=== PATIENT | female | born 1965 | race Native Hawaiian/Other Pacific Islander ===

== ENCOUNTER 2016-03-06 08:02 | Outpatient (CLI) | payer OTHER | END 2016-03-06 19:06 | disposition home or self-care (01) | LOC: LABW 08:02 | DX: M25.50 Pain in unspecified joint (principal) | CPT/HCPCS: 36415; 85651; 86039; 86430 ==

== ENCOUNTER 2016-04-17 08:43 | Outpatient (CLI) | payer OTHER | END 2016-04-17 22:49 | disposition home or self-care (01) | LOC: MAMMO 08:43 | DX: Z12.31 Encounter for screening mammogram for malignant neoplasm of breast (principal); Z78.0 Asymptomatic menopausal state; Z82.62 Family history of osteoporosis; M25.559 Pain in unspecified hip | CPT/HCPCS: G0202-TC ==

== ENCOUNTER 2016-04-26 13:12 | Outpatient (CLI) | payer OTHER | END 2016-04-26 19:17 | disposition home or self-care (01) | LOC: LABW 13:12 | DX: E11.40 Type 2 diabetes mellitus with diabetic neuropathy, unspecified (principal) | CPT/HCPCS: 36415; 82607; 85651; 86039 ==

== ENCOUNTER 2016-05-09 15:55 | Outpatient (CLI) | payer OTHER | END 2016-05-09 21:10 | disposition home or self-care (01) | LOC: RESP 15:55 | DX: E11.40 Type 2 diabetes mellitus with diabetic neuropathy, unspecified (principal) | CPT/HCPCS: 95910 ==

== ENCOUNTER 2016-05-27 11:10 | Outpatient (CLI) | payer OTHER | END 2016-05-27 19:14 | disposition home or self-care (01) | LOC: RAD 11:10 | DX: E11.9 Type 2 diabetes mellitus without complications (principal); K59.00 Constipation, unspecified ==

== ENCOUNTER 2016-06-20 12:40 | Outpatient (CLI) | payer OTHER | END 2016-06-20 13:40 | disposition home or self-care (01) | LOC: RAD 12:40 | DX: M25.511 Pain in right shoulder (principal); M25.531 Pain in right wrist ==

== ENCOUNTER 2016-07-08 08:46 | Outpatient (CLI) | payer OTHER | END 2016-07-08 11:00 | disposition home or self-care (01) | LOC: MRI 08:46 | DX: M25.511 Pain in right shoulder (principal) ==

== ENCOUNTER 2016-07-25 08:34 | Outpatient (CLI) | payer OTHER ==
[2016-07-25 09:16] LABS: POTASSIUM 4.2 mmol/L (3.6-5.2); SODIUM 141 mmol/L (136-145)
== END 2016-07-25 09:45 | disposition home or self-care (01) ==
LOC: LABW 08:34
PROVIDERS: Physician Assistant
DX: I10 Essential (primary) hypertension (principal); E04.2 Nontoxic multinodular goiter; E11.9 Type 2 diabetes mellitus without complications; G62.89 Other specified polyneuropathies
CPT/HCPCS: 36415; 80053; 80061; 82607; 83036; 83735; 84439; 84443; 85651

== ENCOUNTER 2016-08-01 10:12 | Outpatient (CLI) | payer OTHER | END 2016-08-01 19:40 | disposition home or self-care (01) | LOC: MRI 10:12 | DX: M25.531 Pain in right wrist (principal) ==

== ENCOUNTER 2017-02-24 09:42 | Outpatient (CLI) | payer OTHER | END 2017-02-24 20:20 | disposition home or self-care (01) | LOC: RAD 09:42 | DX: J01.01 Acute recurrent maxillary sinusitis (principal); J18.9 Pneumonia, unspecified organism ==

== ENCOUNTER 2017-02-26 08:35 | Outpatient (CLI) | payer OTHER ==
[2017-02-26 09:55] LABS: PLATELET COUNT 213 K/uL (152-353)
[2017-02-26 10:06] LABS: POTASSIUM 4.7 mmol/L (3.6-5.2); SODIUM 137 mmol/L (136-145)
== END 2017-02-26 19:36 | disposition home or self-care (01) ==
LOC: LABW 08:35
PROVIDERS: Physician Assistant
DX: J01.01 Acute recurrent maxillary sinusitis (principal); J18.9 Pneumonia, unspecified organism; E10.9 Type 1 diabetes mellitus without complications; Z79.899 Other long term (current) drug therapy; Z51.81 Encounter for therapeutic drug level monitoring
CPT/HCPCS: 36415; 80053; 80061; 83036; 84439; 84443; 85027

== ENCOUNTER 2017-03-04 10:14 | Outpatient (CLI) | payer OTHER | END 2017-03-04 11:30 | disposition home or self-care (01) | LOC: RESP 10:14 | DX: R07.89 Other chest pain (principal); R06.02 Shortness of breath; R53.83 Other fatigue; I25.10 Atherosclerotic heart disease of native coronary artery without angina pectoris | CPT/HCPCS: 93306 ==

== ENCOUNTER 2017-04-02 18:05 | Emergency (ER) | payer OTHER ==
[~2017-04-02] VITALS: Ht 157.5 cm; Wt 69.4 kg
[2017-04-02] MEDS ORDERED: CLOP75TA2 PO (18:27)
[2017-04-02] MEDS ORDERED: ALPR0.5T24 PO (18:28)
[2017-04-02] MEDS ORDERED: ZANTAC300 MG PO (18:28)
[2017-04-02] MEDS ORDERED: LISI5TAB10 PO (18:29)
[2017-04-02] MEDS ORDERED: METO25TA4 OR (18:29)
[2017-04-02] MEDS ORDERED: LYRICA200 MG OR (18:29)
[2017-04-02] MEDS ORDERED: TRESIBA FL100 UNIT/M SC (18:31)
[2017-04-02 19:12] LABS: PLATELET COUNT 159 K/uL (152-353)
[2017-04-02 19:18] LABS: POTASSIUM 4.1 mmol/L (3.6-5.2); SODIUM 135 mmol/L (136-145)
[2017-04-02 20:10] VITALS: BP 121/66; TEMP 98.5
== END 2017-04-02 20:10 | disposition home or self-care (01) ==
LOC: ED 18:05
DX: R55 Syncope and collapse (principal); E11.9 Type 2 diabetes mellitus without complications
CPT/HCPCS: 36415; 80053; 81000; 82550; 82553; 84484; 85027; 87081; 87804; 87880; 93005; 99283

== ENCOUNTER 2017-05-09 13:30 | Outpatient (CLI) | payer OTHER ==
[~2017-05-09 13:30] MED LIST: ALPR0.5T24 PO; CLOP75TA2 PO; LISI5TAB10 PO; LYRICA200 MG OR; METO25TA4 OR; TRESIBA FL100 UNIT/M SC; ZANTAC300 MG PO
== END 2017-05-09 23:01 | disposition home or self-care (01) ==
LOC: RAD 13:30
DX: M54.5 Low back pain (principal); M54.2 Cervicalgia

== ENCOUNTER 2017-07-01 09:20 | Outpatient (CLI) | payer OTHER | END 2017-07-01 19:57 | disposition home or self-care (01) | LOC: MRI 09:20 | DX: E04.2 Nontoxic multinodular goiter (principal); G89.29 Other chronic pain; M25.512 Pain in left shoulder ==

== ENCOUNTER 2017-07-25 09:32 | Outpatient (CLI) | payer OTHER | END 2017-07-25 19:42 | disposition home or self-care (01) | LOC: MAMMO 09:32 | DX: Z12.31 Encounter for screening mammogram for malignant neoplasm of breast (principal) ==

== ENCOUNTER 2017-08-19 08:05 | Outpatient (CLI) | payer OTHER | END 2017-08-19 23:10 | disposition home or self-care (01) | LOC: LABW 08:05 | DX: E10.9 Type 1 diabetes mellitus without complications (principal) | CPT/HCPCS: 36415; 83036 ==

== ENCOUNTER 2017-09-25 10:19 | Outpatient (CLI) | payer OTHER | END 2017-09-25 23:15 | disposition home or self-care (01) | LOC: LABW 10:19 | DX: Z79.891 Long term (current) use of opiate analgesic (principal) | CPT/HCPCS: 80307 ==

== ENCOUNTER 2017-12-19 07:28 | Outpatient (CLI) | payer OTHER ==
[2017-12-19 08:14] LABS: PLATELET COUNT 191 K/uL (152-353)
[2017-12-19 08:35] LABS: POTASSIUM 4.1 mmol/L (3.6-5.2)
== END 2017-12-19 21:09 | disposition home or self-care (01) ==
LOC: LABW 07:28
PROVIDERS: Physician Assistant
DX: I10 Essential (primary) hypertension (principal); E10.9 Type 1 diabetes mellitus without complications
CPT/HCPCS: 36415; 80053; 83036; 84439; 84443; 85027

== ENCOUNTER 2018-05-04 10:45 | Outpatient (CLI) | payer OTHER ==
[2018-05-04 12:00] LABS: PLATELET COUNT 204 K/uL (152-353)
[2018-05-04 12:11] LABS: POTASSIUM 4.3 mmol/L (3.6-5.2)
== END 2018-05-04 22:37 | disposition home or self-care (01) ==
LOC: LABW 10:45
PROVIDERS: Physician Assistant
DX: R14.0 Abdominal distension (gaseous) (principal); K86.1 Other chronic pancreatitis; K59.09 Other constipation
CPT/HCPCS: 36415; 74022; 80053; 82150; 83690; 85027

== ENCOUNTER 2018-05-11 09:29 | Outpatient (CLI) | payer OTHER | END 2018-05-11 20:29 | disposition home or self-care (01) | LOC: US 09:29 | DX: K59.00 Constipation, unspecified (principal) ==

== ENCOUNTER 2018-05-29 07:58 | Outpatient (CLI) | payer OTHER | END 2018-05-29 19:47 | disposition home or self-care (01) | LOC: LABW 07:58 | PROVIDERS: Nurse Practitioner Adult Health | DX: I25.10 Atherosclerotic heart disease of native coronary artery without angina pectoris (principal); E78.2 Mixed hyperlipidemia; Z79.899 Other long term (current) drug therapy | CPT/HCPCS: 36415; 80061; 80076 ==

== ENCOUNTER 2018-06-25 09:37 | Outpatient (CLI) | payer OTHER ==
[2018-06-25 09:57] LABS: PLATELET COUNT 198 K/uL (152-353)
[2018-06-25 10:13] LABS: POTASSIUM 4.9 mmol/L (3.6-5.2)
== END 2018-06-25 23:10 | disposition home or self-care (01) ==
LOC: LABW 09:37
PROVIDERS: Physician Assistant
DX: N30.01 Acute cystitis with hematuria (principal); E78.49 Other hyperlipidemia; I10 Essential (primary) hypertension; E10.9 Type 1 diabetes mellitus without complications
CPT/HCPCS: 36415; 80053; 84439; 84443; 85027; 87086; 87088

== ENCOUNTER 2018-10-12 09:36 | Outpatient (CLI) | payer OTHER | END 2018-10-12 23:59 | disposition home or self-care (01) | LOC: RESP 09:36 | DX: R00.2 Palpitations (principal) | CPT/HCPCS: 93225 ==

== ENCOUNTER 2018-11-04 08:54 | Outpatient (CLI) | payer OTHER | END 2018-11-04 20:08 | disposition home or self-care (01) | LOC: MAMMO 08:54 | DX: Z12.31 Encounter for screening mammogram for malignant neoplasm of breast (principal) ==

== ENCOUNTER 2018-11-27 08:13 | Outpatient (CLI) | payer OTHER ==
[2018-11-27 11:20] LABS: POTASSIUM 4.3 mmol/L (3.6-5.2)
== END 2018-11-27 19:53 | disposition home or self-care (01) ==
LOC: LABW 08:13
PROVIDERS: Physician Assistant
DX: E11.9 Type 2 diabetes mellitus without complications (principal); Z79.4 Long term (current) use of insulin
CPT/HCPCS: 36415; 80053; 83036

== ENCOUNTER 2019-06-14 08:24 | Outpatient (CLI) | payer OTHER ==
[2019-06-14 09:04] LABS: POTASSIUM 4.2 mmol/L (3.6-5.2)
[2019-06-14 10:01] LABS: PLATELET COUNT 195 K/uL (152-353)
== END 2019-06-14 19:34 | disposition home or self-care (01) ==
LOC: LABW 08:24
PROVIDERS: Family Medicine
DX: R10.9 Unspecified abdominal pain (principal); K59.09 Other constipation; F41.8 Other specified anxiety disorders; E11.9 Type 2 diabetes mellitus without complications; I10 Essential (primary) hypertension; E78.00 Pure hypercholesterolemia, unspecified; Z87.19 Personal history of other diseases of the digestive system
CPT/HCPCS: 36415; 80053; 80061; 81000; 82306; 83036; 84439; 84443; 85027

== ENCOUNTER 2019-08-16 08:18 | Outpatient (CLI) | payer OTHER | END 2019-08-16 21:05 | disposition home or self-care (01) | LOC: CT 08:18 | DX: R10.9 Unspecified abdominal pain (principal); K59.09 Other constipation; F41.8 Other specified anxiety disorders; E11.9 Type 2 diabetes mellitus without complications; I10 Essential (primary) hypertension; E78.00 Pure hypercholesterolemia, unspecified; Z87.19 Personal history of other diseases of the digestive system; E55.9 Vitamin D deficiency, unspecified | CPT/HCPCS: 36415; 82565; 84520; Q9963 ==

== ENCOUNTER 2019-10-11 09:09 | Outpatient (CLI) | payer OTHER | END 2019-10-11 19:10 | disposition home or self-care (01) | LOC: RAD 09:09 | DX: R05 Cough (principal); J44.9 Chronic obstructive pulmonary disease, unspecified; F17.200 Nicotine dependence, unspecified, uncomplicated; M54.5 Low back pain; M54.10 Radiculopathy, site unspecified ==

== ENCOUNTER 2019-12-15 08:08 | Outpatient (CLI) | payer OTHER ==
[2019-12-15 08:48] LABS: POTASSIUM 4.3 mmol/L (3.6-5.2)
[2019-12-15 09:41] LABS: PLATELET COUNT 184 K/uL (152-353)
== END 2019-12-15 23:20 | disposition home or self-care (01) ==
LOC: LABW 08:08
PROVIDERS: Family Medicine
DX: E11.9 Type 2 diabetes mellitus without complications (principal); F41.8 Other specified anxiety disorders; I25.10 Atherosclerotic heart disease of native coronary artery without angina pectoris; I73.89 Other specified peripheral vascular diseases; Z12.31 Encounter for screening mammogram for malignant neoplasm of breast; F17.200 Nicotine dependence, unspecified, uncomplicated; J44.9 Chronic obstructive pulmonary disease, unspecified; G62.89 Other specified polyneuropathies; E55.9 Vitamin D deficiency, unspecified; I11.9 Hypertensive heart disease without heart failure
CPT/HCPCS: 36415; 80053; 80061; 81000; 82306; 83036; 83735; 84439; 84443; 85027; 85651

== ENCOUNTER 2020-03-16 08:17 | Outpatient (CLI) | payer OTHER | END 2020-03-16 23:40 | disposition home or self-care (01) | LOC: MAMMO 08:17 | PROVIDERS: ATTEND Family Medicine | DX: Z12.31 Encounter for screening mammogram for malignant neoplasm of breast (principal) ==

== ENCOUNTER 2020-04-28 09:08 | Outpatient (CLI) | payer OTHER | END 2020-04-28 21:36 | disposition home or self-care (01) | LOC: RAD 09:08 | PROVIDERS: ATTEND Family Medicine | DX: N95.1 Menopausal and female climacteric states (principal); E55.9 Vitamin D deficiency, unspecified; M54.5 Low back pain; J44.9 Chronic obstructive pulmonary disease, unspecified; F17.210 Nicotine dependence, cigarettes, uncomplicated; N95.8 Other specified menopausal and perimenopausal disorders ==

== ENCOUNTER 2020-05-24 08:14 | Outpatient (CLI) | payer OTHER ==
[~2020-05-24] VITALS: Ht 161.3 cm; Wt 73.0 kg
== END 2020-05-24 20:04 | disposition home or self-care (01) ==
LOC: DIABINF 08:14
PROVIDERS: ATTEND Internal Medicine Endocrinology, Diabetes & Metabolism
DX: E11.65 Type 2 diabetes mellitus with hyperglycemia (principal); Z79.4 Long term (current) use of insulin; E11.319 Type 2 diabetes mellitus with unspecified diabetic retinopathy without macular edema; E11.40 Type 2 diabetes mellitus with diabetic neuropathy, unspecified; I25.110 Atherosclerotic heart disease of native coronary artery with unstable angina pectoris; E78.2 Mixed hyperlipidemia; I10 Essential (primary) hypertension; F41.1 Generalized anxiety disorder; F33.9 Major depressive disorder, recurrent, unspecified; Z72.0 Tobacco use; E55.9 Vitamin D deficiency, unspecified; M50.30 Other cervical disc degeneration, unspecified cervical region
CPT/HCPCS: 82948; 96365; 96366; 96521; 99204; J1718; J1815

== ENCOUNTER → 2020-05-25 | Outpatient (CLI) | payer OTHER ==
[~2020-05-25] VITALS: Ht 161.3 cm; Wt 73.0 kg
== END ==
LOC: DIABINF 08:10
PROVIDERS: ATTEND Internal Medicine Endocrinology, Diabetes & Metabolism
DX: E11.65 Type 2 diabetes mellitus with hyperglycemia (principal); Z79.4 Long term (current) use of insulin; E11.319 Type 2 diabetes mellitus with unspecified diabetic retinopathy without macular edema; E11.40 Type 2 diabetes mellitus with diabetic neuropathy, unspecified; I25.110 Atherosclerotic heart disease of native coronary artery with unstable angina pectoris; E78.2 Mixed hyperlipidemia; I10 Essential (primary) hypertension; F41.1 Generalized anxiety disorder; F33.9 Major depressive disorder, recurrent, unspecified; Z72.0 Tobacco use; E55.9 Vitamin D deficiency, unspecified; M50.30 Other cervical disc degeneration, unspecified cervical region
CPT/HCPCS: 82948; 96365; 96366; 96521; 99214; J1718; J1815

== ENCOUNTER 2020-05-26 14:26 | Outpatient (CLI) | payer OTHER ==
[2020-05-26 14:48] LABS: PLATELET COUNT 198 K/uL (152-353)
[2020-05-26 15:55] LABS: POTASSIUM 4.2 mmol/L (3.6-5.2)
== END 2020-05-26 19:53 | disposition home or self-care (01) ==
LOC: LABW 14:26
PROVIDERS: ATTEND Nurse Practitioner Adult Health
DX: Z01.810 Encounter for preprocedural cardiovascular examination (principal); I25.10 Atherosclerotic heart disease of native coronary artery without angina pectoris
CPT/HCPCS: 36415; 80053; 85027

== ENCOUNTER 2020-05-31 08:38 | Outpatient (CLI) | payer OTHER ==
[~2020-05-31] VITALS: Ht 161.3 cm; Wt 73.0 kg
== END 2020-05-31 21:30 | disposition home or self-care (01) ==
LOC: DIABINF 08:38
PROVIDERS: ATTEND Internal Medicine Endocrinology, Diabetes & Metabolism
DX: E11.65 Type 2 diabetes mellitus with hyperglycemia (principal); Z79.4 Long term (current) use of insulin; E11.319 Type 2 diabetes mellitus with unspecified diabetic retinopathy without macular edema; E11.40 Type 2 diabetes mellitus with diabetic neuropathy, unspecified; I25.110 Atherosclerotic heart disease of native coronary artery with unstable angina pectoris; E78.2 Mixed hyperlipidemia; I10 Essential (primary) hypertension; F41.1 Generalized anxiety disorder; F33.9 Major depressive disorder, recurrent, unspecified; Z72.0 Tobacco use; E55.9 Vitamin D deficiency, unspecified; M50.30 Other cervical disc degeneration, unspecified cervical region
CPT/HCPCS: 82948; 96365; 96366; 96521; 99214; J1718; J1815

== ENCOUNTER 2020-06-01 08:20 | Outpatient (CLI) | payer OTHER ==
[~2020-06-01] VITALS: Ht 161.3 cm; Wt 73.0 kg
== END 2020-06-01 20:55 | disposition home or self-care (01) ==
LOC: DIABINF 08:20
PROVIDERS: ATTEND Internal Medicine Endocrinology, Diabetes & Metabolism
DX: E11.65 Type 2 diabetes mellitus with hyperglycemia (principal); Z79.4 Long term (current) use of insulin; E11.319 Type 2 diabetes mellitus with unspecified diabetic retinopathy without macular edema; E11.40 Type 2 diabetes mellitus with diabetic neuropathy, unspecified; I25.110 Atherosclerotic heart disease of native coronary artery with unstable angina pectoris; E78.2 Mixed hyperlipidemia; I10 Essential (primary) hypertension; F41.1 Generalized anxiety disorder; F33.9 Major depressive disorder, recurrent, unspecified; Z72.0 Tobacco use; E55.9 Vitamin D deficiency, unspecified; M50.30 Other cervical disc degeneration, unspecified cervical region
CPT/HCPCS: 82948; 96365; 96366; 96521; 99214; J1718; J1815

== ENCOUNTER 2020-06-07 08:17 | Outpatient (CLI) | payer OTHER ==
[~2020-06-07] VITALS: Ht 161.3 cm; Wt 71.7 kg
== END 2020-06-07 21:14 | disposition home or self-care (01) ==
LOC: DIABINF 08:17
PROVIDERS: ATTEND Internal Medicine Endocrinology, Diabetes & Metabolism
DX: E11.65 Type 2 diabetes mellitus with hyperglycemia (principal); Z79.4 Long term (current) use of insulin; E11.319 Type 2 diabetes mellitus with unspecified diabetic retinopathy without macular edema; E11.40 Type 2 diabetes mellitus with diabetic neuropathy, unspecified; I25.110 Atherosclerotic heart disease of native coronary artery with unstable angina pectoris; E78.2 Mixed hyperlipidemia; I10 Essential (primary) hypertension; F41.1 Generalized anxiety disorder; F33.9 Major depressive disorder, recurrent, unspecified; Z72.0 Tobacco use; E55.9 Vitamin D deficiency, unspecified; M50.30 Other cervical disc degeneration, unspecified cervical region
CPT/HCPCS: 82948; 96365; 96366; 96521; 99214; J1718; J1815

== ENCOUNTER 2020-06-15 08:06 | Outpatient (CLI) | payer OTHER ==
[~2020-06-15] VITALS: Ht 170.2 cm; Wt 90.3 kg
== END 2020-06-15 19:20 | disposition home or self-care (01) ==
LOC: DIABINF 08:06
PROVIDERS: ATTEND Nurse Practitioner
DX: E11.65 Type 2 diabetes mellitus with hyperglycemia (principal); Z79.4 Long term (current) use of insulin; E11.319 Type 2 diabetes mellitus with unspecified diabetic retinopathy without macular edema; E11.40 Type 2 diabetes mellitus with diabetic neuropathy, unspecified; I25.110 Atherosclerotic heart disease of native coronary artery with unstable angina pectoris; E78.2 Mixed hyperlipidemia; I10 Essential (primary) hypertension; F41.1 Generalized anxiety disorder; F33.9 Major depressive disorder, recurrent, unspecified; Z72.0 Tobacco use; E55.9 Vitamin D deficiency, unspecified; M50.30 Other cervical disc degeneration, unspecified cervical region
CPT/HCPCS: 82948; 96365; 96366; 96521; 99214; J1718; J1815

== ENCOUNTER 2020-06-22 08:02 | Outpatient (CLI) | payer OTHER ==
[~2020-06-22] VITALS: Ht 160 cm; Wt 71.7 kg
== END 2020-06-22 20:22 | disposition home or self-care (01) ==
LOC: DIABINF 08:02
PROVIDERS: ATTEND Nurse Practitioner
DX: E11.65 Type 2 diabetes mellitus with hyperglycemia (principal); Z79.4 Long term (current) use of insulin; E11.319 Type 2 diabetes mellitus with unspecified diabetic retinopathy without macular edema; E11.40 Type 2 diabetes mellitus with diabetic neuropathy, unspecified; I25.110 Atherosclerotic heart disease of native coronary artery with unstable angina pectoris; E78.2 Mixed hyperlipidemia; I10 Essential (primary) hypertension; F41.1 Generalized anxiety disorder; F33.9 Major depressive disorder, recurrent, unspecified; Z72.0 Tobacco use; E55.9 Vitamin D deficiency, unspecified; M50.30 Other cervical disc degeneration, unspecified cervical region
CPT/HCPCS: 82948; 96365; 96366; 96521; J1815; J1817

== ENCOUNTER 2020-06-23 08:19 | Outpatient (CLI) | payer OTHER ==
[~2020-06-23] VITALS: Ht 160 cm; Wt 71.7 kg
== END 2020-06-23 21:47 | disposition home or self-care (01) ==
LOC: DIABINF 08:19
PROVIDERS: ATTEND Internal Medicine Endocrinology, Diabetes & Metabolism
DX: E11.65 Type 2 diabetes mellitus with hyperglycemia (principal); Z79.4 Long term (current) use of insulin; E11.319 Type 2 diabetes mellitus with unspecified diabetic retinopathy without macular edema; E11.40 Type 2 diabetes mellitus with diabetic neuropathy, unspecified; I25.110 Atherosclerotic heart disease of native coronary artery with unstable angina pectoris; E78.2 Mixed hyperlipidemia; I10 Essential (primary) hypertension; F41.1 Generalized anxiety disorder; F33.9 Major depressive disorder, recurrent, unspecified; Z72.0 Tobacco use; E55.9 Vitamin D deficiency, unspecified; M50.30 Other cervical disc degeneration, unspecified cervical region; K21.9 Gastro-esophageal reflux disease without esophagitis; J30.89 Other allergic rhinitis
CPT/HCPCS: 82948; 96365; 96366; 96521; J1815; J1817

== ENCOUNTER 2020-06-29 08:17 | Outpatient (CLI) | payer OTHER ==
[~2020-06-29] VITALS: Ht 160 cm; Wt 71.9 kg
== END 2020-06-29 23:16 | disposition home or self-care (01) ==
LOC: DIABINF 08:17
PROVIDERS: ATTEND Internal Medicine Endocrinology, Diabetes & Metabolism
DX: E11.65 Type 2 diabetes mellitus with hyperglycemia (principal); Z79.4 Long term (current) use of insulin; E11.319 Type 2 diabetes mellitus with unspecified diabetic retinopathy without macular edema; E11.40 Type 2 diabetes mellitus with diabetic neuropathy, unspecified; I25.110 Atherosclerotic heart disease of native coronary artery with unstable angina pectoris; E78.2 Mixed hyperlipidemia; I10 Essential (primary) hypertension; F41.1 Generalized anxiety disorder; F33.9 Major depressive disorder, recurrent, unspecified; Z72.0 Tobacco use; E55.9 Vitamin D deficiency, unspecified; M50.30 Other cervical disc degeneration, unspecified cervical region; K21.9 Gastro-esophageal reflux disease without esophagitis; J30.89 Other allergic rhinitis
CPT/HCPCS: 82948; 96365; 96366; 96521; J1815; J1817

== ENCOUNTER 2020-06-29 08:28 | Outpatient (CLI) | payer OTHER ==
[~2020-06-29] VITALS: Ht 162.6 cm; Wt 71.2 kg
[2020-06-29 09:34] VITALS: BP 120/62; TEMP 97.8
== END 2020-06-29 23:16 | disposition home or self-care (01) ==
LOC: INF 08:28
PROVIDERS: ATTEND Internal Medicine Endocrinology, Diabetes & Metabolism
DX: M81.0 Age-related osteoporosis without current pathological fracture (principal)
CPT/HCPCS: 82310; 96372; J0897

== ENCOUNTER 2020-06-30 08:17 | Outpatient (CLI) | payer OTHER ==
[~2020-06-30] VITALS: Ht 160 cm; Wt 71.9 kg
== END 2020-06-30 22:38 | disposition home or self-care (01) ==
LOC: DIABINF 08:17
PROVIDERS: ATTEND Internal Medicine Endocrinology, Diabetes & Metabolism
DX: E11.65 Type 2 diabetes mellitus with hyperglycemia (principal); Z79.4 Long term (current) use of insulin; E11.319 Type 2 diabetes mellitus with unspecified diabetic retinopathy without macular edema; E11.40 Type 2 diabetes mellitus with diabetic neuropathy, unspecified; I25.110 Atherosclerotic heart disease of native coronary artery with unstable angina pectoris; E78.2 Mixed hyperlipidemia; I10 Essential (primary) hypertension; F41.1 Generalized anxiety disorder; F33.9 Major depressive disorder, recurrent, unspecified; Z72.0 Tobacco use; E55.9 Vitamin D deficiency, unspecified; M50.30 Other cervical disc degeneration, unspecified cervical region; K21.9 Gastro-esophageal reflux disease without esophagitis; J30.89 Other allergic rhinitis
CPT/HCPCS: 82948; 96365; 96366; 96521; J1815; J1817

== ENCOUNTER 2020-07-05 08:25 | Outpatient (CLI) | payer OTHER ==
[~2020-07-05] VITALS: Ht 160 cm; Wt 71.9 kg
== END 2020-07-05 21:26 | disposition home or self-care (01) ==
LOC: DIABINF 08:25
PROVIDERS: ATTEND Internal Medicine Endocrinology, Diabetes & Metabolism
DX: E11.65 Type 2 diabetes mellitus with hyperglycemia (principal); Z79.4 Long term (current) use of insulin; E11.319 Type 2 diabetes mellitus with unspecified diabetic retinopathy without macular edema; E11.40 Type 2 diabetes mellitus with diabetic neuropathy, unspecified; I25.110 Atherosclerotic heart disease of native coronary artery with unstable angina pectoris; E78.2 Mixed hyperlipidemia; I10 Essential (primary) hypertension; F41.1 Generalized anxiety disorder; F33.0 Major depressive disorder, recurrent, mild; Z72.0 Tobacco use; E55.9 Vitamin D deficiency, unspecified; M50.30 Other cervical disc degeneration, unspecified cervical region; K21.9 Gastro-esophageal reflux disease without esophagitis; J30.89 Other allergic rhinitis
CPT/HCPCS: 82948; 96365; 96366; 96521; J1815; J1817

== ENCOUNTER 2020-07-12 08:09 | Outpatient (CLI) | payer OTHER ==
[~2020-07-12] VITALS: Ht 160 cm; Wt 71.9 kg
== END 2020-07-12 20:13 | disposition home or self-care (01) ==
LOC: DIABINF 08:09
PROVIDERS: ATTEND Internal Medicine Endocrinology, Diabetes & Metabolism
DX: E11.65 Type 2 diabetes mellitus with hyperglycemia (principal); Z79.4 Long term (current) use of insulin; E11.319 Type 2 diabetes mellitus with unspecified diabetic retinopathy without macular edema; E11.40 Type 2 diabetes mellitus with diabetic neuropathy, unspecified; I25.110 Atherosclerotic heart disease of native coronary artery with unstable angina pectoris; E78.2 Mixed hyperlipidemia; I10 Essential (primary) hypertension; F41.1 Generalized anxiety disorder; F33.0 Major depressive disorder, recurrent, mild; Z72.0 Tobacco use; E55.9 Vitamin D deficiency, unspecified; M50.30 Other cervical disc degeneration, unspecified cervical region; K21.9 Gastro-esophageal reflux disease without esophagitis; J30.89 Other allergic rhinitis
CPT/HCPCS: 82948; 96365; 96366; 96521; J1815; J1817

== ENCOUNTER 2020-07-19 08:31 | Outpatient (CLI) | payer OTHER ==
[~2020-07-19] VITALS: Ht 160 cm; Wt 71.9 kg
== END 2020-07-19 19:46 | disposition home or self-care (01) ==
LOC: DIABINF 08:31
PROVIDERS: ATTEND Nurse Practitioner
DX: E11.65 Type 2 diabetes mellitus with hyperglycemia (principal); Z79.4 Long term (current) use of insulin; E11.319 Type 2 diabetes mellitus with unspecified diabetic retinopathy without macular edema; E11.40 Type 2 diabetes mellitus with diabetic neuropathy, unspecified; I25.110 Atherosclerotic heart disease of native coronary artery with unstable angina pectoris; E78.2 Mixed hyperlipidemia; I10 Essential (primary) hypertension; F41.1 Generalized anxiety disorder; F33.0 Major depressive disorder, recurrent, mild; Z72.0 Tobacco use; E55.9 Vitamin D deficiency, unspecified; M50.30 Other cervical disc degeneration, unspecified cervical region; K21.9 Gastro-esophageal reflux disease without esophagitis; J30.89 Other allergic rhinitis
CPT/HCPCS: 82948; 96365; 96366; 96521; J1815; J1817

== ENCOUNTER 2020-07-20 08:05 | Outpatient (CLI) | payer OTHER | END 2020-07-20 22:43 | disposition home or self-care (01) | LOC: LABW 08:05 | PROVIDERS: ATTEND Specialist | DX: E78.49 Other hyperlipidemia (principal); I10 Essential (primary) hypertension; I25.10 Atherosclerotic heart disease of native coronary artery without angina pectoris | CPT/HCPCS: 36415; 80061; 80076 ==

== ENCOUNTER 2020-07-26 08:13 | Outpatient (CLI) | payer OTHER ==
[~2020-07-26] VITALS: Ht 160 cm; Wt 71.9 kg
== END 2020-07-26 23:00 | disposition home or self-care (01) ==
LOC: DIABINF 08:13
PROVIDERS: ATTEND Internal Medicine Endocrinology, Diabetes & Metabolism
DX: E11.65 Type 2 diabetes mellitus with hyperglycemia (principal); Z79.4 Long term (current) use of insulin; E11.319 Type 2 diabetes mellitus with unspecified diabetic retinopathy without macular edema; E11.40 Type 2 diabetes mellitus with diabetic neuropathy, unspecified; I25.110 Atherosclerotic heart disease of native coronary artery with unstable angina pectoris; E78.2 Mixed hyperlipidemia; I10 Essential (primary) hypertension; F41.1 Generalized anxiety disorder; F33.0 Major depressive disorder, recurrent, mild; Z72.0 Tobacco use; E55.9 Vitamin D deficiency, unspecified; M50.30 Other cervical disc degeneration, unspecified cervical region; K21.9 Gastro-esophageal reflux disease without esophagitis; I73.89 Other specified peripheral vascular diseases; J30.89 Other allergic rhinitis; N61.0 Mastitis without abscess; G47.09 Other insomnia
CPT/HCPCS: 82948; 96365; 96366; 96521; J1815; J1817

== ENCOUNTER 2020-08-09 08:00 | Outpatient (CLI) | payer OTHER ==
[~2020-08-09] VITALS: Ht 160 cm; Wt 71.9 kg
== END 2020-08-09 11:30 | disposition home or self-care (01) ==
LOC: DIABINF 08:00
PROVIDERS: ATTEND Internal Medicine Endocrinology, Diabetes & Metabolism
DX: E11.65 Type 2 diabetes mellitus with hyperglycemia (principal); E11.40 Type 2 diabetes mellitus with diabetic neuropathy, unspecified; E11.319 Type 2 diabetes mellitus with unspecified diabetic retinopathy without macular edema; F17.210 Nicotine dependence, cigarettes, uncomplicated; I10 Essential (primary) hypertension; E78.2 Mixed hyperlipidemia; F41.1 Generalized anxiety disorder; F32.9 Major depressive disorder, single episode, unspecified; E55.9 Vitamin D deficiency, unspecified; M50.30 Other cervical disc degeneration, unspecified cervical region; K21.9 Gastro-esophageal reflux disease without esophagitis; J30.2 Other seasonal allergic rhinitis
CPT/HCPCS: 82948; 96365; 96366; 96521; J1815; J1817

== ENCOUNTER 2020-08-16 08:07 | Outpatient (CLI) | payer OTHER ==
[~2020-08-16] VITALS: Ht 160 cm; Wt 71.9 kg
== END 2020-08-16 11:30 | disposition home or self-care (01) ==
LOC: DIABINF 08:07
PROVIDERS: ATTEND Nurse Practitioner
DX: E11.65 Type 2 diabetes mellitus with hyperglycemia (principal); E11.40 Type 2 diabetes mellitus with diabetic neuropathy, unspecified; Z79.4 Long term (current) use of insulin; H35.00 Unspecified background retinopathy; E11.311 Type 2 diabetes mellitus with unspecified diabetic retinopathy with macular edema; I25.110 Atherosclerotic heart disease of native coronary artery with unstable angina pectoris; I73.89 Other specified peripheral vascular diseases; I10 Essential (primary) hypertension; E78.2 Mixed hyperlipidemia; F41.1 Generalized anxiety disorder; F32.89 Other specified depressive episodes; F17.210 Nicotine dependence, cigarettes, uncomplicated; M50.33 Other cervical disc degeneration, cervicothoracic region; K21.9 Gastro-esophageal reflux disease without esophagitis; J30.2 Other seasonal allergic rhinitis
CPT/HCPCS: 82948; 96365; 96366; 96521; 99214; J1815; J1817

== ENCOUNTER 2020-08-23 08:18 | Outpatient (CLI) | payer OTHER ==
[~2020-08-23] VITALS: Ht 160 cm; Wt 71.9 kg
== END 2020-08-23 22:09 | disposition home or self-care (01) ==
LOC: DIABINF 08:18
PROVIDERS: ATTEND Nurse Practitioner
DX: E11.65 Type 2 diabetes mellitus with hyperglycemia (principal); E11.40 Type 2 diabetes mellitus with diabetic neuropathy, unspecified; E11.319 Type 2 diabetes mellitus with unspecified diabetic retinopathy without macular edema; F17.210 Nicotine dependence, cigarettes, uncomplicated; I10 Essential (primary) hypertension; E78.2 Mixed hyperlipidemia; F41.1 Generalized anxiety disorder; F32.9 Major depressive disorder, single episode, unspecified; M50.30 Other cervical disc degeneration, unspecified cervical region; E55.9 Vitamin D deficiency, unspecified; K21.9 Gastro-esophageal reflux disease without esophagitis; J30.2 Other seasonal allergic rhinitis
CPT/HCPCS: 82948; 96365; 96366; 96521; J1815; J1817

== ENCOUNTER 2020-08-23 11:01 | Outpatient (CLI) | payer OTHER ==
[~2020-08-23] VITALS: Ht 160 cm; Wt 71.9 kg
== END 2020-08-23 22:13 | disposition home or self-care (01) ==
LOC: MAMMO 11:01
PROVIDERS: ATTEND Family Medicine
DX: N64.4 Mastodynia (principal)
CPT/HCPCS: G0279

== ENCOUNTER 2020-08-30 08:20 | Outpatient (CLI) | payer OTHER ==
[~2020-08-30] VITALS: Ht 160 cm; Wt 72.1 kg
== END 2020-08-30 21:24 | disposition home or self-care (01) ==
LOC: DIABINF 08:20
PROVIDERS: ATTEND Nurse Practitioner
DX: E11.65 Type 2 diabetes mellitus with hyperglycemia (principal); E11.40 Type 2 diabetes mellitus with diabetic neuropathy, unspecified; E11.319 Type 2 diabetes mellitus with unspecified diabetic retinopathy without macular edema; F17.210 Nicotine dependence, cigarettes, uncomplicated; I10 Essential (primary) hypertension; E78.2 Mixed hyperlipidemia; F41.1 Generalized anxiety disorder; F32.9 Major depressive disorder, single episode, unspecified; M50.30 Other cervical disc degeneration, unspecified cervical region; E55.9 Vitamin D deficiency, unspecified; K21.9 Gastro-esophageal reflux disease without esophagitis; J30.2 Other seasonal allergic rhinitis
CPT/HCPCS: 82948; 96365; 96366; 96521; J1815; J1817

== ENCOUNTER 2020-09-07 08:23 | Outpatient (CLI) | payer OTHER ==
[~2020-09-07] VITALS: Ht 161.3 cm; Wt 114.3 kg
== END 2020-09-07 21:00 | disposition home or self-care (01) ==
LOC: DIABINF 08:23
PROVIDERS: ATTEND Nurse Practitioner
DX: E11.65 Type 2 diabetes mellitus with hyperglycemia (principal); E11.319 Type 2 diabetes mellitus with unspecified diabetic retinopathy without macular edema; E78.2 Mixed hyperlipidemia; I10 Essential (primary) hypertension; F41.1 Generalized anxiety disorder; F33.0 Major depressive disorder, recurrent, mild; Z72.0 Tobacco use; E55.9 Vitamin D deficiency, unspecified; M50.30 Other cervical disc degeneration, unspecified cervical region; K21.9 Gastro-esophageal reflux disease without esophagitis; J30.89 Other allergic rhinitis
CPT/HCPCS: 82948; 96365; 96366; 96521; J1815; J1817

== ENCOUNTER 2020-09-13 08:23 | Outpatient (CLI) | payer OTHER ==
[~2020-09-13] VITALS: Ht 160 cm; Wt 71.9 kg
== END 2020-09-13 23:27 | disposition home or self-care (01) ==
LOC: DIABINF 08:23
PROVIDERS: ATTEND Nurse Practitioner
DX: E11.65 Type 2 diabetes mellitus with hyperglycemia (principal); E11.40 Type 2 diabetes mellitus with diabetic neuropathy, unspecified; E11.319 Type 2 diabetes mellitus with unspecified diabetic retinopathy without macular edema; Z72.0 Tobacco use; I10 Essential (primary) hypertension; E78.2 Mixed hyperlipidemia; F41.1 Generalized anxiety disorder; F32.0 Major depressive disorder, single episode, mild; E55.9 Vitamin D deficiency, unspecified; M50.30 Other cervical disc degeneration, unspecified cervical region; K21.9 Gastro-esophageal reflux disease without esophagitis; J30.89 Other allergic rhinitis
CPT/HCPCS: 82948; 96365; 96366; 96521; J1815; J1817

== ENCOUNTER 2020-10-04 08:40 | Outpatient (CLI) | payer OTHER ==
[~2020-10-04] VITALS: Ht 160 cm; Wt 72.6 kg
== END 2020-10-04 21:08 | disposition home or self-care (01) ==
LOC: DIABINF 08:40
PROVIDERS: ATTEND Nurse Practitioner
DX: E11.65 Type 2 diabetes mellitus with hyperglycemia (principal); E11.40 Type 2 diabetes mellitus with diabetic neuropathy, unspecified; E11.319 Type 2 diabetes mellitus with unspecified diabetic retinopathy without macular edema; Z72.0 Tobacco use; I10 Essential (primary) hypertension; E78.2 Mixed hyperlipidemia; F41.1 Generalized anxiety disorder; F32.0 Major depressive disorder, single episode, mild; E55.9 Vitamin D deficiency, unspecified; M50.30 Other cervical disc degeneration, unspecified cervical region; K21.9 Gastro-esophageal reflux disease without esophagitis; J30.89 Other allergic rhinitis
CPT/HCPCS: 82948; 96365; 96366; 96521; J1815; J1817

== ENCOUNTER 2020-10-30 10:58 | Outpatient (CLI) | payer OTHER ==
[2020-10-30 11:31] LABS: PLATELET COUNT 200 K/uL (152-353)
[2020-10-30 11:52] LABS: POTASSIUM 4.3 mmol/L (3.6-5.2); SODIUM 144 mmol/L (136-145)
[2020-10-30 13:02] LABS: PARTIAL THROMBOPLASTIN TIME 23.5 SECONDS (24.5-33.6)
== END 2020-10-30 22:17 | disposition home or self-care (01) ==
LOC: LABW 10:58
PROVIDERS: ATTEND Family Medicine
DX: R00.2 Palpitations (principal); R60.0 Localized edema; R21 Rash and other nonspecific skin eruption; F41.8 Other specified anxiety disorders
CPT/HCPCS: 36415; 80053; 81000; 82550; 84439; 84443; 84484; 85027; 85610; 85730; 93005

== ENCOUNTER 2020-10-30 12:58 | Outpatient (CLI) | payer OTHER | END 2020-10-30 22:24 | disposition home or self-care (01) | LOC: LAB 12:58 | PROVIDERS: ATTEND Family Medicine | DX: Z20.822 Contact with and (suspected) exposure to COVID-19 (principal); B09 Unspecified viral infection characterized by skin and mucous membrane lesions | CPT/HCPCS: 87635; G2023; U0003 ==

== ENCOUNTER 2021-09-07 20:41 | Inpatient (IN) | payer OTHER ==
[~2021-09-07] VITALS: Ht 160 cm; Wt 68.0 kg
[2021-09-07 20:46] VITALS: BP 137/62; TEMP 98.7
[2021-09-07 21:02] VITALS: BP 123/52
[2021-09-07 21:31] VITALS: BP 123/48
[2021-09-07 21:50] LABS: POTASSIUM 3.8 mmol/L (3.6-5.2); SODIUM 131 mmol/L (136-145)
[2021-09-07 21:58] LABS: PARTIAL THROMBOPLASTIN TIME 29.6 SECONDS (24.5-33.6); PLATELET COUNT 162 K/uL (152-353)
[2021-09-07 22:00] VITALS: BP 109/66
[2021-09-07 23:05] VITALS: BP 111/30
[2021-09-07 23:30] VITALS: BP 106/40
[2021-09-08] VITALS (7 sets, daily range): BP systolic 103–141; BP diastolic 36–68; TEMP 97.3–98.7; Ht 160 cm; Wt 68.0 kg
[2021-09-08] MEDS ORDERED: CEFD300C2 PO (04:03)
[2021-09-08] MEDS ORDERED: HYDR5TAB9 PO (04:04)
[2021-09-08] MEDS ORDERED: AZIT250T3 PO (04:04)
[2021-09-08] MEDS ORDERED: MELOXICAM7.5 MG PO (04:05)
[2021-09-08] MEDS ORDERED: JANUVIA100 MG PO (04:06)
[2021-09-08] MEDS ORDERED: LIPITOR40 MG PO (04:06)
[2021-09-08 10:15] LABS: PLATELET COUNT 174 K/uL (152-353)
[2021-09-09] VITALS: BP 111/61; TEMP 98.1
[2021-09-09 04:00] VITALS: BP 111/61; TEMP 98.1
[2021-09-09 07:46] VITALS: BP 124/66; TEMP 98
[2021-09-09 12:00] VITALS: BP 114/60; TEMP 97.9
[2021-09-09] MEDS ORDERED: INSU100I2 SC (14:27)
[2021-09-09] MEDS ORDERED: HUMALOG KW100 UNIT/M SC (14:29)
[2021-09-09 16:00] VITALS: BP 106/61; TEMP 97.8
[2021-09-09 20:00] VITALS: BP 134/62; TEMP 97.9
[2021-09-10] VITALS: BP 135/70; TEMP 97.7
[2021-09-10 04:00] VITALS: BP 126/57; TEMP 97.8
[2021-09-10 05:24] LABS: PLATELET COUNT 208 K/uL (152-353)
[2021-09-10 05:47] LABS: POTASSIUM 3.7 mmol/L (3.6-5.2)
[2021-09-10 08:00] VITALS: BP 134/57; TEMP 98.3
[2021-09-10 09:15] LABS: POTASSIUM 4.2 mmol/L (3.6-5.2)
[2021-09-10] MEDS ORDERED: ALBUTEROL108 MCG/AC INH (10:46)
[2021-09-10] MEDS ORDERED: FLOVENT HF44 MCG/ACT INH (10:47)
[2021-09-10] MEDS ORDERED: ALEN70TA19 PO (10:48)
[2021-09-10 12:00] VITALS: BP 130/51; TEMP 98
[2021-09-10 16:00] VITALS: BP 152/69; TEMP 97.6
== END 2021-09-10 18:50 | disposition home or self-care (01) | DRG 194 ==
LOC: ED 20:41 → MED/SURG 23:20
PROVIDERS: ADMIT Hospitalist; ATTEND Family Medicine
DX: J18.8 Other pneumonia, unspecified organism (principal); J44.0 Chronic obstructive pulmonary disease with (acute) lower respiratory infection; N39.0 Urinary tract infection, site not specified; J44.1 Chronic obstructive pulmonary disease with (acute) exacerbation; E86.0 Dehydration; E11.65 Type 2 diabetes mellitus with hyperglycemia; D64.89 Other specified anemias; I25.10 Atherosclerotic heart disease of native coronary artery without angina pectoris; E78.49 Other hyperlipidemia; I10 Essential (primary) hypertension; R74.01 Elevation of levels of liver transaminase levels; Z72.0 Tobacco use; K21.9 Gastro-esophageal reflux disease without esophagitis; M79.7 Fibromyalgia; M81.8 Other osteoporosis without current pathological fracture
CPT/HCPCS: 36415; 36600; 80053; 80061; 81002; 81015; 82550; 82805; 83036; 83605; 83880; 84484; 85007; 85027; 85379; 85610; 85730; 87040; 87070; 87205; 87502; 87635; 87651; 93005; 94664; 94667; 94760; 96365; 99284; J0456; J0696; J1650; J1815; J1885; J1956; J2405; J3370; Q9963; U0003

== ENCOUNTER 2021-09-17 10:43 | Outpatient (CLI) | payer OTHER ==
[~2021-09-17 10:43] MED LIST changes: +ALBUTEROL108 MCG/AC INH; +ALEN70TA19 PO; +AZIT250T3 PO; +CEFD300C2 PO; +FLOVENT HF44 MCG/ACT INH; +HUMALOG KW100 UNIT/M SC; +HYDR5TAB9 PO; +INSU100I2 SC; +JANUVIA100 MG PO; +LIPITOR40 MG PO; +MELOXICAM7.5 MG PO
[2021-09-17 11:06] LABS: PLATELET COUNT 430 K/uL (152-353)
[2021-09-17 11:17] LABS: POTASSIUM 4.3 mmol/L (3.6-5.2)
== END 2021-09-17 18:58 | disposition home or self-care (01) ==
LOC: RAD 10:43
PROVIDERS: ATTEND Family Medicine
DX: R06.02 Shortness of breath (principal); Z87.01 Personal history of pneumonia (recurrent); J44.9 Chronic obstructive pulmonary disease, unspecified; Z09 Encounter for follow-up examination after completed treatment for conditions other than malignant neoplasm; I25.10 Atherosclerotic heart disease of native coronary artery without angina pectoris; R74.8 Abnormal levels of other serum enzymes; K21.9 Gastro-esophageal reflux disease without esophagitis
CPT/HCPCS: 80053; 83735; 85027

== ENCOUNTER 2022-05-10 08:34 | Outpatient (CLI) | payer OTHER | END 2022-05-10 20:35 | disposition home or self-care (01) | LOC: MAMMO 08:34 | PROVIDERS: ATTEND Family Medicine | DX: Z12.31 Encounter for screening mammogram for malignant neoplasm of breast (principal) ==

== ENCOUNTER 2022-06-19 14:06 | Outpatient (CLI) | payer OTHER | END 2022-06-19 19:14 | LOC: CT 14:06 | PROVIDERS: ATTEND Family Medicine | DX: R10.84 Generalized abdominal pain (principal); W19.XXXA Unspecified fall, initial encounter ==

== ENCOUNTER 2022-08-09 07:24 | Outpatient (CLI) | payer OTHER | END 2022-08-09 20:47 | disposition home or self-care (01) | LOC: LABW 07:24 | PROVIDERS: ATTEND Nurse Practitioner | DX: E78.2 Mixed hyperlipidemia (principal); I10 Essential (primary) hypertension | CPT/HCPCS: 36415; 80061; 80076 ==

== ENCOUNTER 2022-10-11 08:27 | Outpatient (CLI) | payer OTHER ==
[2022-10-11 08:53] LABS: PLATELET COUNT 174 K/uL (152-353)
[2022-10-11 09:09] LABS: POTASSIUM 4.4 mmol/L (3.6-5.2)
== END 2022-10-11 18:56 | disposition home or self-care (01) ==
LOC: LABW 08:27
PROVIDERS: ATTEND Family Medicine
DX: I10 Essential (primary) hypertension (principal); I73.9 Peripheral vascular disease, unspecified; R74.8 Abnormal levels of other serum enzymes; F41.8 Other specified anxiety disorders; E11.8 Type 2 diabetes mellitus with unspecified complications; E78.1 Pure hyperglyceridemia; G89.4 Chronic pain syndrome; K21.9 Gastro-esophageal reflux disease without esophagitis; E55.9 Vitamin D deficiency, unspecified; Z79.899 Other long term (current) drug therapy
CPT/HCPCS: 36415; 80053; 80061; 81002; 82306; 83036; 83735; 84439; 84443; 84550; 85027